=== PATIENT | male | born 1960 | race African-American/Black ===

== ENCOUNTER 2016-10-22 20:23 | Emergency (ER) | payer OTHER ==
[~2016-10-22] VITALS: Ht 180.3 cm; Wt 95.0 kg
[2016-10-22 20:26] VITALS: BP 132/95
[2016-10-22] MEDS ORDERED: KETOROLAC TROMETHAMINE 60 MG/2 ML VIAL IM ONE (21:30)
== END 2016-10-22 21:57 | disposition home or self-care (01) ==
LOC: EMS 20:27
DX: S83.411A Sprain of medial collateral ligament of right knee, initial encounter (principal); Y93.B2 Activity, push-ups, pull-ups, sit-ups; Y92.89 Other specified places as the place of occurrence of the external cause; Y99.8 Other external cause status
CPT/HCPCS: 29530; 96372; 99283; J1885

== ENCOUNTER 2017-02-13 11:19 | Emergency (ER) | payer OTHER ==
[~2017-02-13] VITALS: Ht 180.3 cm; Wt 100.0 kg
[2017-02-13 11:31] VITALS: BP 149/100
[2017-02-13] MEDS ORDERED: KETOROLAC TROMETHAMINE 60 MG/2 ML VIAL IM ONE (11:45)
[2017-02-13] MEDS ORDERED: HYDROCODONE/ACETAMINOPHEN 10-325 MG TABLET PO ONE (12:30)
== END 2017-02-13 12:43 | disposition home or self-care (01) ==
LOC: EMS 11:20
DX: K02.9 Dental caries, unspecified (principal); F17.210 Nicotine dependence, cigarettes, uncomplicated
CPT/HCPCS: 96372; 99283; 99406; J1885

== ENCOUNTER 2017-07-08 09:44 | Emergency (ER) | payer OTHER ==
[~2017-07-08] VITALS: Ht 180.3 cm; Wt 102.7 kg
[2017-07-08 11:25] VITALS: BP 142/88
== END 2017-07-08 12:01 | disposition home or self-care (01) ==
LOC: EMS 09:46
DX: B00.9 Herpesviral infection, unspecified (principal); F17.210 Nicotine dependence, cigarettes, uncomplicated
CPT/HCPCS: 99283; 99406